=== PATIENT | female | born 1960 ===

== ENCOUNTER 2021-04-30 18:02 | Outpatient (REF) | payer BC, SELFPAY ==
--- NOTE | 2021-04-30 17:30 | PAPFT_PTH ---
PATIENT: Soledad Alan LOC: [facility] [place] U#:[id number] AGE/SX: 61/F ROOM: RE04/30/[address]: Chaz Bai : 1960 BED: DIS: 04/30/2021 SPEC #: [id number] RECD: 05/01/21 12:48 STATUS: ANH BAZAN #: [id number] WILLIE: 04/30/21 17:[address]: Chaz Bai DEPT: [facility] Cytology RECD BY: Kim Carson Tissues: 1 - CX/ENDOCX FOR PAP SMEARS Procedures: PAP THIN PREP/[facility] Screening HPV DNA PROBE Comments: [id number]
[2021-04-30 20:23] LABS: Calculated LDL 174 mg/dL (<100); Cholesterol 269 mg/dL (<200); HDL Cholesterol 85 mg/dL (40-60); TSH 1.82 uIU/mL (0.36-3.74); Triglyceride 52 mg/dL (<150)
== END 2021-04-30 18:03 | disposition home or self-care (01) ==
LOC: NCHCN 18:02
PROVIDERS: PCP Internal Medicine; Visit Provider Internal Medicine
DX: Z00.00 Encounter for general adult medical examination without abnormal findings (principal); Z12.4 Encounter for screening for malignant neoplasm of cervix; Z11.51 Encounter for screening for human papillomavirus (HPV); Z01.419 Encounter for gynecological examination (general) (routine) without abnormal findings
CPT/HCPCS: 80061; 88142; 84443; 87624

== ENCOUNTER 2023-09-14 09:26 | Outpatient (REF) | payer BC, SELFPAY | END 2023-09-14 09:27 | disposition home or self-care (01) | LOC: NCHCN 09:26 | PROVIDERS: PCP Internal Medicine; Visit Provider Physician Assistant | DX: L72.3 Sebaceous cyst (principal) | CPT/HCPCS: 87070; 87205 ==